=== PATIENT | male | born 1985 | race Caucasian/White ===

== ENCOUNTER 2017-10-26 11:05 | Emergency (ER) | payer OTHER ==
[~2017-10-26] VITALS: Ht 182.9 cm; Wt 90.7 kg
[2017-10-26 11:13] VITALS: BP 142/87
--- NOTE | 2017-10-26 11:15 | NUR ---
[id number] + PD, IN CUSTODY. FOUND STANDING ON A FWAY OVERPASS,REFUSING TO LEAVE, PT WAS TAZED, NO C/O AT THIS MOMENT. NAD NOTED, VSS, RESP EVEN AND UNLABORED. WAITING FOR MD BAUER.
[2017-10-26] MEDS: IV NS 0.9% 1,000 ML BAG IV ONE (12:00)
[2017-10-26 12:12] LABS: BASOPHILS % (AUTO) 0.4 % (0.0-2.0); EOSINOPHILS # (AUTO) 0.3 /CMM (0.0-0.7); EOSINOPHILS % (AUTO) 2.5 % (0.0-6.0); HEMATOCRIT 47 % (39-51); HEMOGLOBIN 16.2 g/dL (13.5-17.5); LYMPHOCYTES # (AUTO) 1.2 /CMM (0.8-4.8); LYMPHOCYTES % (AUTO) 10.2 % (20.0-44.0); MEAN CORPUSCULAR HEMOGLOBIN 31 PG (26.0-33.0); MEAN CORPUSCULAR HGB CONC 35 g/dl (31.0-36.0); MEAN CORPUSCULAR VOLUME 88 fL (80-96); MONOCYTES # (AUTO) 0.8 /CMM (0.1-1.30); MONOCYTES % (AUTO) 6.8 % (2.0-12.0); NEUTROPHILS # (AUTO) 9.4 /CMM (1.8-8.9); NEUTROPHILS % (AUTO) 80.1 % (43.0-81.0); PLATELET COUNT (AUTO) 299 /CMM (150-450); RDW COEFFICIENT OF VARIATION 11.6 (11.5-15.0); WHITE BLOOD COUNT (AUTO) 11.7 K/uL (4.3-11.0)
--- NOTE | 2017-10-26 12:14 | NUR ---
PT CANT PROVIDE URINE AT THIS MOMENT, WILL TRY AGAIN AFTER FLUIDS SENIOR CARE DONE
--- NOTE | 2017-10-26 12:14 | NUR ---
PT TO [facility]SCAN.
--- NOTE | 2017-10-26 12:14 | NUR ---
BLOOD SAMPLE COLLECTED, IVF STARTED.
[2017-10-26 12:47] LABS: ALANINE AMINOTRANSFERASE 25 U/L (12-78); ALBUMIN 4.1 g/dL (3.4-5.0); ALCOHOL, BLOOD < 3 mg/dL (0-0); ALKALINE PHOSPHATASE 52 U/L (46-116); ASPARTATE AMINOTRANSFERASE 15 U/L (15-37); BILIRUBIN,DIRECT 0.1 mg/dL (0.0-0.2); BILIRUBIN,TOTAL 0.5 mg/dL (0.2-1.0); CARBON DIOXIDE 23 mmol/L (21-32); CREATININE 1.1 mg/dL (0.6-1.3); GLUCOSE 110 mg/dL (74-106); SALICYLATE 4.4 mg/dL (2.8-20.0); TOTAL PROTEIN, SERUM 7.6 g/dL (6.4-8.2); UREA NITROGEN, BLOOD 13 mg/dL (7-18)
[2017-10-26 12:57] LABS: ACETAMINOPHEN 0 ug/ml (10-30)
[2017-10-26 13:01] LABS: APPEARANCE,URINE Clear (CLEAR); BILIRUBIN,URINE Negative (NEGATIVE); BLOOD, URINE Trace-intact Ery/uL (NEGATIVE); COLOR,URINE Yellow (YELLOW); KETONES,URINE Negative (NEGATIVE); LEUKOCYTE ESTERASE ,URINE Negative (NEGATIVE); NITRITE, URINE Negative (NEGATIVE); PROTEIN,URINE 100 mg/dl (NEGATIVE); UGLUCOSE Negative (NEGATIVE); UROBILINOGEN,URINE 0.2 EU/dL (0.2)
[2017-10-26 13:10] LABS: BACTERIA,URINE Rare /HPF (None Seen); RBC,URINE 0-2 /HPF (0-2); SQUAMOUS EPITHELIAL CELL,UR Rare /HPF (None Seen); WBC,URINE 0-2 /HPF (0-3)
[2017-10-26 13:55] LABS: CHLORIDE 106 mmol/L (98-107); POTASSIUM 3.7 mmol/L (3.5-5.1); SODIUM SERUM 141 mmol/L (136-145)
== END 2017-10-26 14:20 ==
LOC: ER 11:08
DX: S00.31XA Abrasion of nose, initial encounter (principal); S00.212A Abrasion of left eyelid and periocular area, initial encounter; E86.0 Dehydration; X58.XXXA Exposure to other specified factors, initial encounter; Y93.89 Activity, other specified; Y92.89 Other specified places as the place of occurrence of the external cause; Y99.8 Other external cause status
CPT/HCPCS: 36415; 70486; 80048; 80076; 80305; 80329; 81001; 85025; 93005; 96360; 99285; A4606; G0480 ×2; J7030; Z7610; 81000-TC